=== PATIENT | female | born 1995 ===

== ENCOUNTER 2017-01-27 05:52 | Emergency (ER) | payer MEDICAID ==
[2017-01-27 06:18] VITALS: BP 127/76; PULSE 94; RESP 17; TEMP 98.6; O2SAT 100
--- NOTE | 2017-01-27 06:34 | ED PDOC ---
Upper Extremity Pain/Injury Time Seen by Provider: 01/27/17 06:21 Chief Complaint (Nursing): Upper Extremity Problem/Injury Chief Complaint (Provider): right hand pain History Per: Patient History/Exam Limitations: no limitations Onset/Duration Of Symptoms: Hrs Current Symptoms Are (Timing): Still Present Additional Complaint(s): 21yo female, 36 weeks , presents to the ED with c/o right hand pain since yesterday that was atraumatic. Pain is to radial side of wrist and sometimes radiates up into elbow. May have noticed swelling that is gone now. No symptoms to left hand. Past Medical History Reviewed: Historical Data, Nursing Documentation, Vital Signs Vital Signs: Last Vital Signs Temp 98.6 F 01/27/17 06:14 Pulse 94 H 01/27/17 06:14 Resp 17 01/27/17 06:14 BP 127/76 01/27/17 06:14 Pulse Ox 100 01/27/17 06:14 - Medical History PMH: Bipolar Disorder, Depression - Surgical History Surgical History: No Surg Hx - Family History Family History: States: No Known Family Hx - Home Medications Home Medications: Ambulatory Orders Medication Instructions Recorded Nitrofurantoin Macrocrystals 100 mg PO BID #14 cap 08/01/16 [Macrobid] No Other Home Meds 08/01/16 Acetaminophen [8 Hour Pain Relief] 650 mg PO Q8 #30 tablet.er 01/27/17 - Allergies Allergies/Adverse Reactions: Allergies Allergy/AdvReac Type Severity Reaction Status Date / Time No Known Allergies Allergy Verified 08/01/16 12:27 Review of Systems ROS Statement: Except As Marked, All Systems Reviewed And Found Negative Musculoskeletal: Positive for: Hand Pain (right ) Physical Exam - Reviewed Nursing Documentation Reviewed: Yes Vital Signs Reviewed: Yes - Physical Exam Appears: Positive for: Well, No Acute Distress Head Exam: Positive for: ATRAUMATIC, NORMAL INSPECTION, NORMOCEPHALIC Skin: Positive for: Normal Color, Warm, Dry Extremity: Positive for: Normal ROM, Other (right hand: no swelling, no tenderness, no weakness, neurovascularly intact ). Negative for: Tenderness, Deformity, Swelling Neurologic/Psych: Positive for: Alert, Oriented - ECG O2 Sat by Pulse Oximetry: 100 Pulse Ox Interpretation: Normal (RA) Medical Decision Making Medical Decision Makin: Impression: De Quervain's tenosynovitis Patient stable for d/c. Advised to avoid NSAIDs until after . Will give splint and instructed to f/u OBGYN. Scribe Attestation: Documented by Shade Chowdhury acting as a scribe for Julio Ramos MD. Provider Scribe Attestation: All medical record entries made by the Scribe were at my direction and personally dictated by me. I have reviewed the chart and agree that the record accurately reflects my personal performance of the history, physical exam, medical decision making, and the department course for this patient. I have also personally directed, reviewed, and agree with the discharge instructions and disposition. Disposition - Clinical Impression Clinical Impression: Radial styloid tenosynovitis [de quervain] - Patient ED Disposition Is Patient to be Admitted: No - Disposition [facility] Disposition: Routine/Home Disposition Time: 06:30 Condition: STABLE Prescriptions: Acetaminophen [8 Hour Pain Relief] 650 mg PO Q8 #30 tablet.er Instructions: De Quervain Disease (ED) Forms: [facility] ED School/Work Excuse
== END 2017-01-27 06:43 | disposition home or self-care (01) ==
LOC: H.ER 05:52
DX: M65.4 Radial styloid tenosynovitis [de Quervain] (principal)

== ENCOUNTER 2017-12-02 08:51 | Emergency (ER) | payer MEDICAID ==
[2017-12-02 08:57] VITALS: BP 129/75; PULSE 109; RESP 16; TEMP 97.5; O2SAT 100
[2017-12-02 08:58] VITALS: BMI 29.2
--- NOTE | 2017-12-02 09:59 | ED PDOC ---
HPI: Female Pain Chief Complaint (Provider): "my right side hurts" History Per: Patient History/Exam Limitations: no limitations Onset/Duration Of Symptoms: Days Current Symptoms Are (Timing): Still Present Severity: Moderate Pain Scale Rating Of: 8 Quality Of Discomfort: Dull Associated Symptoms: Nausea, Vomiting, Loss Of Appetite, Back Pain, Urinary Symptoms Alleviating Factors: Rest Additional Complaint(s): 22 y/o , presents complaining of right flank pain for the last two days. Pt reports pain started gradually and eventually escalated up to 8/10. Pain is constant, dull, nonradiating. Alleviated with rest, exacerbated with movement. Associated with gross hematuria, urgency, and an episode of nausea and vomiting. Pt reports LMP was 11/11/2017, and was regular. Currently sexually active with her one partner, only protection is her IUD. Denies fever/chills, headaches, changes in vision, CP/SOB/Palpitations, D/C. <Tera Hernadez - Last Filed: 12/02/17 12:26> <Viviana Viveros - Last Filed: 12/02/17 12:34> Time Seen by Provider: 12/02/17 09:13 Chief Complaint (Nursing): Female Genitourinary Supervising Attending Note - Supervising Attending Note The Documented history was done by the: Physician Repair Electric Motor Assembler The documented physical exam was done by the: Physician Repair Electric Motor Assembler The documented procedures were done by the: Physician Repair Electric Motor Assembler - Attestation: I have personally seen and examined this patient.: Yes I have fully participated in the care of the patient.: Yes I have reviewed all pertinent clinical information, including history, physical exam and plan: Yes <Viviana Viveros - Last Filed: 12/02/17 12:34> Past Medical History Vital Signs: Last Vital Signs Temp 97.5 F L 12/02/17 08:54 Pulse 109 H 12/02/17 08:54 Resp 16 12/02/17 08:54 BP 129/75 12/02/17 08:54 Pulse Ox 100 12/02/17 08:54 - Medical History PMH: Bipolar Disorder, Depression - Surgical History Surgical History: No Surg Hx - Family History Family History: States: Unknown Family Hx <Tera Hernadez - Last Filed: 12/02/17 12:26> Vital Signs: Last Vital Signs Temp 97.5 F L 12/02/17 08:54 Pulse 109 H 12/02/17 08:54 Resp 16 12/02/17 08:54 BP 129/75 12/02/17 08:54 Pulse Ox 100 12/02/17 12:27 <Viviana Viveros - Last Filed: 12/02/17 12:34> - Home Medications Home Medications: Ambulatory Orders Medication Instructions Recorded Nitrofurantoin Macrocrystals 100 mg PO BID #14 cap 08/01/16 [Macrobid] No Other Home Meds 08/01/16 Acetaminophen [8 Hour Pain Relief] 650 mg PO Q8 #30 tablet.er 01/27/17 Amoxicillin 875 mg PO BID #14 tablet 12/02/17 Ondansetron ODT [Zofran ODT] 4 mg PO PRN PRN #14 odt 12/02/17 - Allergies Allergies/Adverse Reactions: Allergies Allergy/AdvReac Type Severity Reaction Status Date / Time No Known Allergies Allergy Verified 08/01/16 12:27 Review of Systems ROS Statement: Except As Marked, All Systems Reviewed And Found Negative <Tera Hernadez - Last Filed: 12/02/17 12:26> Physical Exam - Reviewed Nursing Documentation Reviewed: Yes Vital Signs Reviewed: Yes - Physical Exam Appears: Positive for: Non-toxic, No Acute Distress Head Exam: Positive for: ATRAUMATIC Skin: Positive for: Warm, Dry. Negative for: Diaphoresis, Pallor Eye Exam: Positive for: EOMI, PERRL ENT: Positive for: Normal ENT Inspection Neck: Positive for: Painless ROM, Supple Cardiovascular/Chest: Positive for: Regular Rate, Rhythm. Negative for: JVD, Bradycardia Respiratory: Positive for: Normal Breath Sounds. Negative for: Crackles, Rales , Rhonchi Pulses-Radial (L): 2+ Pulses-Radial (R): 2+ Gastrointestinal/Abdominal: Positive for: Soft. Negative for: Tenderness, Distended, Guarding, Rebound Back: Negative for: L CVA Tenderness, R CVA Tenderness Lymphatic: Negative for: Adenopathy Neurologic/Psych: Positive for: Alert, chocolate finisher II-XII, Oriented <Tera Hernadez - Last Filed: 12/02/17 12:26> - ECG O2 Sat by Pulse Oximetry: 100 - Progress ED Course And Treament: suspected nephrolithiasis U-dip UA Upreg Abd/pelvis CT w/o contrast Toradol 15mg IVP Normal Saline 1L Zofran 4mg IVP imaging and labs reviewed, no stones, likley UTI. Pt improved with treatment in ED, will d/c home on PO abx with close follow up with pmd. <Tera Hernadez - Last Filed: 12/02/17 12:26> Disposition - Patient ED Disposition Is Patient to be Admitted: No - Disposition Disposition: Routine/Home Disposition Time: 12:20 <Tera Hernadez - Last Filed: 12/02/17 12:26> <Viviana Viveros - Last Filed: 12/02/17 12:34> - Clinical Impression Clinical Impression: Urinary tract bacterial infections - Disposition Condition: GOOD Additional Instructions: drink plenty of fluids take antibiotics as prescribed take Zofran as needed for nausea take over the counter ibuprofen or acetaminophen as needed follow up with your primary medical doctor at the beginning of next week Prescriptions: Amoxicillin 875 mg PO BID #14 tablet Ondansetron ODT [Zofran ODT] 4 mg PO PRN PRN #14 odt PRN Reason: Nausea/Vomiting Forms: [facility] (Romansh)
[2017-12-02] MEDS ORDERED: Sodium Chloride 0.9% 1,000 ML IV SCH (10:00)
[2017-12-02 10:05] LABS: SQUAMOUS EPITHIAL 8 /hpf (0-5); URINE BACTERIA OCC (<OCC); URINE BILIRUBIN NEGATIVE (NEGATIVE); URINE BLOOD LARGE (NEGATIVE); URINE CLARITY SLIGHTY-CLOUDY (Clear); URINE COLOR YELLOW (YELLOW); URINE GLUCOSE (UA) NEG (Normal); URINE LEUKOCYTE ESTERASE SMALL Leu/uL (Negative); URINE NITRATE NEGATIVE (NEGATIVE); URINE PROTEIN 30 mg/dL (NEGATIVE); URINE UROBILINOGEN 0.2-1.0 mg/dL (0.2-1.0)
--- NOTE | 2017-12-02 11:38 | CT ---
PROCEDURE: CT Abdomen and Pelvis without intravenous contrast HISTORY: right flank pain, hematuria COMPARISON: CT scan of the abdomen pelvis dated 05/21/2016. TECHNIQUE: Contiguous images were obtained from the domes of the diaphragms to the upper thighs without the administration of intravenous contrast. Oral contrast was not administered. Radiation dose: Total exam DLP = 794.2 mGy-cm. This CT exam was performed using one or more of the following dose reduction techniques: Automated exposure control, adjustment of the mA and/or kV according to patient size, and/or use of iterative reconstruction technique. FINDINGS: LOWER THORAX: Unremarkable. LIVER: Unremarkable. No gross lesion or ductal dilatation. GALLBLADDER AND BILE DUCTS: Unremarkable. PANCREAS: Unremarkable. No gross lesion or ductal dilatation. SPLEEN: Unremarkable. ADRENALS: Unremarkable. No mass. KIDNEYS AND URETERS: Unremarkable. No hydronephrosis. No solid mass. VASCULATURE: Unremarkable. No aortic aneurysm. BOWEL: Unremarkable. No obstruction. No gross mural thickening. APPENDIX: Unremarkable. Normal appendix. PERITONEUM: Unremarkable. No free fluid. No free air. LYMPH NODES: Unremarkable. No enlarged lymph nodes. BLADDER: Unremarkable. REPRODUCTIVE: Intrauterine device in place. BONES: No acute fracture. OTHER FINDINGS: None. IMPRESSION: Unremarkable non contrast enhanced CT of the abdomen and pelvis.
== END 2017-12-02 12:46 | disposition home or self-care (01) ==
LOC: H.ER 08:51
DX: N39.0 Urinary tract infection, site not specified (principal); R31.0 Gross hematuria; F31.9 Bipolar disorder, unspecified
CPT/HCPCS: 74176; 81003; 81025; 87086; 96374; 99284; J1885; J7040

== ENCOUNTER 2018-04-07 08:45 | Emergency (ER) | payer MEDICAID ==
[2018-04-07 08:48] VITALS: BMI 25.6
[2018-04-07 08:50] VITALS: TEMP 97.9; O2SAT 99
--- NOTE | 2018-04-07 09:54 | ED PDOC ---
HPI: Abdomen Time Seen by Provider: 04/07/18 09:16 Chief Complaint (Nursing): Abdominal Pain History Per: Patient History/Exam Limitations: no limitations (22 yo female here because of onset of lower abdominal starting yesterday associated with mild right sided back pain. She felt feverish yesterday but does not have nausea, vomiting or burning in the urine. She notes frequency but states that she usually does. There no vaginal bleeding. She admits to history of bladder infections in the past.) Past Medical History Reviewed: Historical Data, Nursing Documentation, Vital Signs Vital Signs: Last Vital Signs Temp 97.9 F 04/07/18 08:48 Pulse 91 H 04/07/18 08:48 Resp 20 04/07/18 08:48 BP 122/76 04/07/18 08:48 Pulse Ox 99 04/07/18 08:48 - Medical History PMH: Bipolar Disorder, Depression Other PMH: UTI - Surgical History Surgical History: No Surg Hx - Family History Family History: States: Unknown Family Hx - Living Arrangements Living Arrangements: With Family - Social History Current smoker - smoking cessation education provided: Yes - Home Medications Home Medications: Ambulatory Orders Medication Instructions Recorded Nitrofurantoin Macrocrystals 100 mg PO BID #14 cap 08/01/16 [Macrobid] No Other Home Meds 08/01/16 Acetaminophen [8 Hour Pain Relief] 650 mg PO Q8 #30 tablet.er 01/27/17 Amoxicillin 875 mg PO BID #14 tablet 12/02/17 Ondansetron ODT [Zofran ODT] 4 mg PO PRN PRN #14 odt 12/02/17 Sulfamethoxazole/Trimethoprim 1 tab PO BID #6 tab 04/07/18 [Bactrim DS 800 mg-160 mg] - Allergies Allergies/Adverse Reactions: Allergies Allergy/AdvReac Type Severity Reaction Status Date / Time No Known Allergies Allergy Verified 08/01/16 12:27 Review of Systems ROS Statement: Except As Marked, All Systems Reviewed And Found Negative Constitutional: Positive for: Fever. Negative for: Chills Gastrointestinal: Positive for: Abdominal Pain. Negative for: Nausea, Vomiting Genitourinary Female: Positive for: Frequency. Negative for: Dysuria Musculoskeletal: Positive for: Back Pain (right sided) Physical Exam - Reviewed Nursing Documentation Reviewed: Yes Vital Signs Reviewed: Yes - Physical Exam Appears: Positive for: Well, Non-toxic, No Acute Distress Head Exam: Positive for: ATRAUMATIC, NORMAL INSPECTION, NORMOCEPHALIC Skin: Positive for: Normal Color, Warm, DRY Eye Exam: Positive for: Normal appearance, EOMI ENT: Positive for: Normal ENT Inspection Neck: Positive for: Normal Cardiovascular/Chest: Positive for: Regular Rate, Rhythm Respiratory: Positive for: CNT, Normal Breath Sounds Gastrointestinal/Abdominal: Positive for: Normal Exam, Soft Back: Positive for: Normal Inspection, R CVA Tenderness (mild) Extremity: Positive for: Normal ROM Neurologic/Psych: Positive for: Alert, Oriented - Laboratory Results Urine dip results: Positive for: Leukocyte Esterase (large) - ECG O2 Sat by Pulse Oximetry: 99 Disposition - Clinical Impression Clinical Impression: UTI (urinary tract infection) - Patient ED Disposition Is Patient to be Admitted: No Doctor Will See Patient In The: Office Counseled Patient/Family Regarding: Diagnosis, Need For Followup, Rx Given - Disposition Referrals: [facility] [Outside] Disposition: Routine/Home Disposition Time: 09:56 Condition: STABLE Prescriptions: Sulfamethoxazole/Trimethoprim [Bactrim DS 800 mg-160 mg] 1 tab PO BID #6 tab Instructions: Urinary Tract Infections in Adults Forms: [employer] (Armenian), [facility] ED School/Work Excuse - POA Present On Arrival: None
[2018-04-07 10:10] VITALS: BP 120/72; PULSE 88; RESP 18
== END 2018-04-07 10:07 | disposition home or self-care (01) ==
LOC: H.ER 08:45
DX: N39.0 Urinary tract infection, site not specified (principal); F31.9 Bipolar disorder, unspecified

== ENCOUNTER 2018-07-21 16:42 | Emergency (ER) | payer MEDICAID ==
[2018-07-21 16:43] VITALS: BMI 25.6
[2018-07-21 17:02] VITALS: BP 110/73; PULSE 78; RESP 18; TEMP 98.4; O2SAT 99
--- NOTE | 2018-07-21 17:08 | ED PDOC ---
HPI: Abdomen Time Seen by Provider: 07/21/18 17:00 Chief Complaint (Nursing): Abdominal Pain Chief Complaint (Provider): abd pain History Per: Patient Additional Complaint(s): 22-year-old female presents with dysuria and frequency for 3 days. Patient also complains of constipation. She has a history of constipation and normally goes to the bathroom every 2 days but her last bowel movement was 4 days ago. Patient states when she gets constipated she usually uses an enema but she hasn' t done so as of yet. She denies any nausea or vomiting, no diarrhea. Patient denies concern for STD. PMD: none Past Medical History Reviewed: Historical Data, Nursing Documentation, Vital Signs Vital Signs: Last Vital Signs Temp 98.4 F 07/21/18 16:59 Pulse 78 07/21/18 16:59 Resp 18 07/21/18 16:59 BP 110/73 07/21/18 16:59 Pulse Ox 99 07/21/18 17:30 - Medical History PMH: Bipolar Disorder, Depression - Surgical History Surgical History: No Surg Hx - Family History Family History: States: No Known Family Hx - Living Arrangements Living Arrangements: With Family - Social History Current smoker - smoking cessation education provided: No Alcohol: None Drugs: Denies - Home Medications Home Medications: Ambulatory Orders Medication Instructions Recorded Nitrofurantoin Macrocrystals 100 mg PO BID #14 cap 08/01/16 [Macrobid] No Other Home Meds 08/01/16 Acetaminophen [8 Hour Pain Relief] 650 mg PO Q8 #30 tablet.er 01/27/17 Amoxicillin 875 mg PO BID #14 tablet 12/02/17 Ondansetron ODT [Zofran ODT] 4 mg PO PRN PRN #14 odt 12/02/17 Sulfamethoxazole/Trimethoprim 1 tab PO BID #6 tab 04/07/18 [Bactrim DS 800 mg-160 mg] - Allergies Allergies/Adverse Reactions: Allergies Allergy/AdvReac Type Severity Reaction Status Date / Time No Known Allergies Allergy Verified 07/21/18 16:59 Review of Systems ROS Statement: Except As Marked, All Systems Reviewed And Found Negative Constitutional: Negative for: Fever, Chills Cardiovascular: Negative for: Chest Pain Respiratory: Negative for: Cough Gastrointestinal: Positive for: Abdominal Pain, Constipation. Negative for: Nausea, Vomiting, Diarrhea Genitourinary Female: Positive for: Dysuria, Frequency. Negative for: Incontinence, Hematuria, Vaginal Discharge, Vaginal Bleeding Physical Exam - Reviewed Nursing Documentation Reviewed: Yes Vital Signs Reviewed: Yes - Physical Exam Appears: Positive for: Well, Non-toxic, No Acute Distress Skin: Positive for: Normal Color. Negative for: Rash Eye Exam: Positive for: Normal appearance Cardiovascular/Chest: Positive for: Regular Rate, Rhythm Respiratory: Positive for: Normal Breath Sounds Gastrointestinal/Abdominal: Positive for: Soft. Negative for: Tenderness, Distended, Guarding, Rebound Back: Negative for: L CVA Tenderness, R CVA Tenderness Extremity: Positive for: Normal ROM Neurologic/Psych: Positive for: Alert, Oriented - Laboratory Results Urine POC: Negative Urine dip results: Negative for: Leukocyte Esterase, Blood, Nitrate, Ketones, Glucose, Bilirubin, Protein - ECG O2 Sat by Pulse Oximetry: 99 Pulse Ox Interpretation: Normal Medical Decision Making Medical Decision Makin22 y/o female with dysuria and constipation. Abdominal exam is benign. Plan: test Urine dip Glycerin supp Urine dip is negative. Culture was sent. Patient given dietary instructions for relief of constipation. Advised fluids and follow-up with primary care doctor. Disposition - Clinical Impression Clinical Impression: Constipation - Patient ED Disposition Is Patient to be Admitted: No Counseled Patient/Family Regarding: Studies Performed, Diagnosis, Need For Followup, Rx Given - Disposition Referrals: Kelly Fraire MD [Family Provider] - Disposition: Routine/Home Disposition Time: 18:20 Condition: STABLE Additional Instructions: Drink plenty of fluids and follow dietary instructions. Take [id number] MiraLAX fiber supplement daily to help regulate bowel movements. If urine culture results come back positive you will receive a call in 2-3 days. Return to emergency room if acutely worse at any time, otherwise follow-up with primary doctor. Instructions: Constipation in Adults Forms: [employer] (Swedish)
== END 2018-07-21 18:43 | disposition home or self-care (01) ==
LOC: H.ER 16:42
DX: K59.00 Constipation, unspecified (principal)

== ENCOUNTER 2018-12-21 10:49 | Emergency (ER) | payer MEDICAID ==
[2018-12-21 11:11] VITALS: BMI 29.6
[2018-12-21] MEDS ORDERED: Sodium Chloride 0.9% 1,000 ML IV STA (11:59)
--- NOTE | 2018-12-21 12:02 | ED PDOC ---
HPI: General Adult Time Seen by Provider: 12/21/18 11:32 Chief Complaint (Nursing): Back Pain Chief Complaint (Provider): BACK PAIN History Per: Patient (23 Y/O FEMALE HERE WITH RIGHT SIDED FLANK PAIN INTERMITTENTLY WORSE AT NIGHTS X 3 DAYS. NOTES VOMITING/DIARRHEA TODAY. NO FEVERS/CHILLS/DYSURIA.) Past Medical History Reviewed: Historical Data, Nursing Documentation, Vital Signs Vital Signs: Last Vital Signs Temp 98.7 F 12/21/18 11:12 Pulse 95 H 12/21/18 11:12 Resp 20 12/21/18 11:12 BP 111/67 12/21/18 11:12 Pulse Ox 98 12/21/18 11:12 - Medical History PMH: Bipolar Disorder, Depression - Family History Family History: States: Unknown Family Hx - Home Medications Home Medications: Ambulatory Orders Medication Instructions Recorded Nitrofurantoin Macrocrystals 100 mg PO BID #14 cap 08/01/16 [Macrobid] No Other Home Meds 08/01/16 Acetaminophen [8 Hour Pain Relief] 650 mg PO Q8 #30 tablet.er 01/27/17 Amoxicillin 875 mg PO BID #14 tablet 12/02/17 Ondansetron ODT [Zofran ODT] 4 mg PO PRN PRN #14 odt 12/02/17 Sulfamethoxazole/Trimethoprim 1 tab PO BID #6 tab 04/07/18 [Bactrim DS 800 mg-160 mg] Cephalexin [Keflex] 500 mg PO TID #15 capsule 12/21/18 Famotidine [Pepcid] 20 mg PO BID #10 tab 12/21/18 - Allergies Allergies/Adverse Reactions: Allergies Allergy/AdvReac Type Severity Reaction Status Date / Time No Known Allergies Allergy Verified 12/21/18 11:42 Review of Systems ROS Statement: Except As Marked, All Systems Reviewed And Found Negative Gastrointestinal: Positive for: Vomiting, Diarrhea Musculoskeletal: Positive for: Back Pain Physical Exam - Reviewed Nursing Documentation Reviewed: Yes Vital Signs Reviewed: Yes - Physical Exam Appears: Positive for: Well, Non-toxic, No Acute Distress Head Exam: Positive for: ATRAUMATIC, NORMAL INSPECTION, NORMOCEPHALIC Skin: Positive for: Normal Color, Warm, DRY Eye Exam: Positive for: EOMI, Normal appearance, PERRL ENT: Positive for: Normal ENT Inspection Neck: Positive for: Normal, Painless ROM Cardiovascular/Chest: Positive for: Regular Rate, Rhythm Respiratory: Positive for: CNT, Normal Breath Sounds Gastrointestinal/Abdominal: Positive for: Normal Exam, Soft Back: Positive for: Normal Inspection Extremity: Positive for: Normal ROM Neurologic/Psych: Positive for: Alert, Oriented - Laboratory Results Result Diagrams: 12/21/18 12:32 12/21/18 12:32 Urine POC: Negative Urine dip results: Positive for: Leukocyte Esterase, Blood. Negative for: Nitrate, Ketones, Glucose, Bilirubin, Protein - ECG O2 Sat by Pulse Oximetry: 98 - Progress ED Course And Treament: PEPCID 20 MG IV X 1 DOSE ZOFRAN 4 MG IV X 1 DOSE NS 1 LITER WIDE OPEN Disposition - Clinical Impression Clinical Impression: UTI (urinary tract infection) - Patient ED Disposition Is Patient to be Admitted: No - Disposition Disposition: Routine/Home Disposition Time: 13:55 Condition: FAIR Prescriptions: Cephalexin [Keflex] 500 mg PO TID #15 capsule Famotidine [Pepcid] 20 mg PO BID #10 tab Instructions: Urinary Tract Infections in Adults, Viral Gastroenteritis, Adult (DC) Forms: [facility] ED School/Work Excuse
[2018-12-21 12:35] LABS: SQUAMOUS EPITHIAL 6 /hpf (0-5); URINE BILIRUBIN NEGATIVE (NEGATIVE); URINE BLOOD MODERATE (NEGATIVE); URINE CLARITY CLOUDY (Clear); URINE COLOR YELLOW (YELLOW); URINE GLUCOSE (UA) NEG (NEGATIVE); URINE LEUKOCYTE ESTERASE SMALL Leu/uL (Negative); URINE PROTEIN NEGATIVE (NEGATIVE); URINE URIC ACID CRYSTALS RARE /hpf (<OCC); URINE UROBILINOGEN 0.2-1.0 mg/dL (0.2-1.0)
[2018-12-21 13:11] LABS: BASO % 0.2 % (0.0-2.0); EOS # 0.1 K/uL (0.0-0.7); EOS % 1.2 % (0.0-4.0); HEMOGLOBIN 12.5 g/dL (12.0-16.0); LYMPH # 1.1 K/uL (1.0-4.3); LYMPH % 12.6 % (20.0-40.0); MEAN CELL VOLUME 87.1 fl (81.0-99.0); MEAN CORPUSCULAR HEMOGLOBIN 28.7 pg (27.0-31.0); MEAN PLATELET VOLUME 7.5 fl (7.2-11.7); MONO # 0.5 K/uL (0.0-0.8); MONO % 5.8 % (0.0-10.0); NEUT # 7.3 K/uL (1.8-7.0); NEUT % 80.2 % (50.0-75.0); NRBC % 0.2 % (0.0-0.0); RBC 4.35 Mil/uL (3.80-5.20); RED CELL DISTRIBUTION WIDTH 14.1 % (11.5-14.5); WHITE BLOOD COUNT 9.1 K/uL (4.8-10.8)
[2018-12-21 13:21] LABS: ALB/GLOB RATIO 1.3 (1.0-2.1); ALBUMIN 4.1 g/dL (3.5-5.0); ALT/SGPT 26 U/L (9-52); AST/SGOT 27 U/L (14-36); BLOOD UREA NITROGEN 12 mg/dl (7-17); CALCIUM 8.8 mg/dL (8.4-10.2); GFR NON-AFRICAN AMERICAN > 60; LIPASE 181 U/L (23-300)
[2018-12-21] MEDS ORDERED: Potassium Chloride 20 mEq ER Tab PO ONE ×2 (13:33→13:59)
[2018-12-21 14:18] VITALS: BP 105/63; PULSE 84; RESP 18; TEMP 98.5; O2SAT 99
== END 2018-12-21 14:10 | disposition home or self-care (01) ==
LOC: H.ER 10:49
DX: N39.0 Urinary tract infection, site not specified (principal); F31.9 Bipolar disorder, unspecified
CPT/HCPCS: 80053; 81003; 81025; 83690; 85025; 87086; 96361; 96374; 96375; 99284; J2405; J7030